=== PATIENT | male | born 1990 | race Caucasian/White ===

== ENCOUNTER 2017-08-21 04:03 | Emergency (ER) | payer SELFPAY ==
[~2017-08-21] VITALS: Ht 180.3 cm; Wt 90.7 kg
[2017-08-21 04:25] VITALS: BP 137/84
--- NOTE | 2017-08-21 04:34 | Emergency Room Report ---
History of Present Illness General Chief Complaint: Abdominal Pain Source: Patient Present Illness HPI 27-year-old male with no past medical history. He presents with chief complaint of abdominal pain. He had acute onset of right lower quadrant pain that woke him up from sleep. It lasts about an hour. He was diaphoretic and in severe pain. Pain was 10 out of 10. Now he is pain-free. No hematuria. No dysuria. No fever or chills but no anorexia. Does have a family history of kidney stone. Allergies: Coded Allergies: No Known Allergies (Unverified , 08/21/17) Patient History Past Medical History: none, see triage record, old chart reviewed Past Surgical History: none Pertinent Family History: none Social History: Denies: smoking Immunizations: other Reviewed Nursing Documentation: PMH: Agreed, PSxH: Agreed Nursing Documentation-PMH Past Medical History: No Stated History Review of Systems Eye: Denies: eye pain, blurred vision ENT: Denies: ear pain, nose congestion, throat swelling Respiratory: Denies: cough, shortness of breath Cardiovascular: Denies: chest pain, palpitations Gastrointestinal: Reports: abdominal pain, Denies: diarrhea, nausea, vomiting Musculoskeletal: Denies: back pain, joint pain Skin: Denies: rash Neurological: Denies: headache, numbness Endocrine: Denies: increased thirst, increased urine Hematologic/Lymphatic: Denies: easy bruising All Other Systems: negative except mentioned in HPI Physical Exam Vital Signs Date Time Temp Pulse Resp B/P (MAP) Pulse Ox O2 Delivery O2 Flow Rate FiO2 08/21/17 04:07 97.2 66 18 137/84 96 Room Air vitals normal Sp02 EP Interpretation: reviewed, normal General Appearance: well appearing, no apparent distress, alert Head: normocephalic, atraumatic Eyes: bilateral eye PERRL, bilateral eye EOMI ENT: hearing grossly normal, normal pharynx Neck: full range of motion, supple, no meningismus Respiratory: chest non-tender, lungs clear, normal breath sounds Cardiovascular #1: regular rate, rhythm, no murmur Gastrointestinal: normal bowel sounds, non tender, no mass, no organomegaly, no bruit, non-distended Musculoskeletal: back normal, gait/station normal, normal range of motion Psychiatric: mood/affect normal Skin: warm/dry Medical Decision Making Diagnostic Impression: Primary Impression: Abdominal pain of unknown etiology ER Course Patient present with abdominal pain that resolved by time he got here. He said he had a large bowel movement while here. He is asymptomatic right now. I see no evidence of infectious process going on. If symptoms don't improve or pain recur he will need to see his Dr. for referral to see a data coordinator for a colonoscopy to rule out inflammatory bowel disease or Crohn's or ulcerative colitis. Explained to this patient expressed understanding. CT/MRI/US Diagnostic Results CT/MRI/US Diagnostic Results : Imaging Test Ordered: CT abdomen and pelvis Impression Read by radiologist. Segmental wall thickening of the right:. Last Vital Signs Date Time Temp Pulse Resp B/P (MAP) Pulse Ox O2 Delivery O2 Flow Rate FiO2 08/21/17 04:25 97.2 66 18 137/84 96 Room Air Status: improved Disposition: HOME, SELF-CARE Condition: Stable Patient Instructions: Abdominal Pain, Adult Additional Instructions: Followup with your Dr. in 7 days. Return if worse. It pain recur, you may be referred to see a data coordinator for colonoscopy. BUFFY MENDOZA M.D. Aug 21, 2017 04:34
[2017-08-21 04:44] LABS: APPEARANCE,URINE CLEAR; BILIRUBIN, URINE NEGATIVE (NEGATIVE); COLOR,URINE PALE YELLOW; GLUCOSE, URINE (UA) NEGATIVE (NEGATIVE); KETONES,URINE NEGATIVE (NEGATIVE); LEUKOCYTE ESTERASE ,URINE NEGATIVE (NEGATIVE); NITRITE,URINE NEGATIVE (NEGATIVE); PH,URINE 5 (4.5-8.0); PROTEIN,URINE NEGATIVE (NEGATIVE); UROBILINOGEN,URINE NORMAL MG/DL (0.0-1.0)
[2017-08-21 05:40] VITALS: BP 137/84
--- NOTE | 2017-08-21 12:50 | Diagnostic Imaging Report ---
Indication: Abdominal pain Technique: Continuous helical transaxial imaging of the abdomen and pelvis was obtained from the lung bases to the pubic symphysis. No intravenous contrast was administered. Coronal 2-D reformats were also obtained. Automatic Exposure Control was utilized. Total Dose length Product (DLP): [address] Dose Index Volume (CTDIvol): 16.7 mGy Comparison: none Findings: The lung bases appear clear. Normal appendix noted. No bowel obstruction free fluid or free air identified. The bladder appears unremarkable. There is no nephrolithiasis or hydronephrosis. Gallbladder is unremarkable. Solid organ evaluation is limited on a noncontrast examination. Few small nodes, nonspecific noted in the inguinal regions and mesentery. IMPRESSION: Negative noncontrast CT The CT scanner at [facility] is accredited by the [employer] and the scans are performed using dose optimization techniques as appropriate to a performed exam including Automatic Exposure control.
== END 2017-08-21 05:40 | disposition home or self-care (01) ==
LOC: EMR 04:30
DX: R10.31 Right lower quadrant pain (principal)
CPT/HCPCS: 74176; 81003; 99284